=== PATIENT | male | born 1975 | race Caucasian/White ===

== ENCOUNTER 2021-08-27 08:15 | Outpatient (CLI) | payer OTHER ==
--- NOTE | 2021-08-27 11:16 | XRAY Report ---
PROCEDURE: Shoulder 3 View RT INDICATIONS: RIGHT SHOULDER PAIN TECHNIQUE: 4 views of the shoulder were acquired. COMPARISON: None. FINDINGS: BONES: No acute, displaced fracture. The joint spaces are maintained. SOFT TISSUES: No focal abnormality or appreciable pneumothorax. IMPRESSION: 1.No acute osseous abnormality. Reviewed by: Sai Bedolla MD on 08/27/2021 11:15 AM PDT Approved by: Sai Bedolla MD on 08/27/2021 11:15 AM PDT Station ID: [id number]
== END 2021-08-27 23:59 | disposition home or self-care (01) ==
LOC: DI.WOS 08:15
PROVIDERS: ATTEND Physician Assistant
DX: M25.511 Pain in right shoulder (principal)

== ENCOUNTER 2021-08-28 08:28 | Outpatient (CLI) | payer OTHER ==
--- NOTE | 2021-08-28 14:32 | XRAY Report ---
PROCEDURE: Hip BILAT INDICATIONS: BILAT HIP PAIN TECHNIQUE: AP pelvis, one view of each hip obtained. COMPARISON: None FINDINGS: Bones: No fractures or dislocations. No suspicious bony lesions. The visualized pelvic ring appear s intact. Mild joint space narrowing and periarticular osteophyte formation at the bilateral hip join ts. Soft tissues: No suspicious soft tissue calcifications or masses. IMPRESSION: Mild hip osteoarthritic bilaterally. No acute fracture. No osseous lesion. If symptoms and/or clinica l suspicion for pathology continue, further assessment with repeat plain films, or advanced imaging ( e.g., CT, MRI, or bone scan) is recommended for further assessment. Reviewed by: Chaya Marcelino MD on 08/28/2021 2:31 PM PDT Approved by: Chaya Marcelino MD on 08/28/2021 2:31 PM PDT Station ID: [id number]
== END 2021-08-28 23:59 | disposition home or self-care (01) ==
LOC: DI.WOS 08:28
PROVIDERS: ATTEND Physician Assistant
DX: M16.0 Bilateral primary osteoarthritis of hip (principal)

== ENCOUNTER 2022-01-21 08:00 | Outpatient (CLI) | payer OTHER ==
--- NOTE | 2022-01-21 11:57 | XRAY Report ---
PROCEDURE: Knee 4 View LT INDICATIONS: LEFT KNEE PAIN TECHNIQUE: 4 views of the left knee(s) were acquired. COMPARISON: None. FINDINGS: Bones: No fractures or dislocations. No suspicious bony lesions. There is minimal to mild bilatera l narrowing medial compartments bilaterally. No erosions. Soft tissues: Mild left joint effusion. No suspicious soft tissue calcifications. IMPRESSION: Early arthritic change most severe medially as well. Reviewed by: Kayleen Jensen MD on 01/21/2022 11:56 AM PDT Approved by: Kayleen Jensen MD on 01/21/2022 11:56 AM PDT Station ID: [id number]
== END 2022-01-21 23:59 | disposition home or self-care (01) ==
LOC: DI.WOS 08:00
PROVIDERS: ATTEND Physician Assistant
DX: M17.12 Unilateral primary osteoarthritis, left knee (principal); M25.462 Effusion, left knee